=== PATIENT | female | born 1995 | race Caucasian/White ===

== ENCOUNTER 2023-12-14 15:35 | Outpatient (REF) | payer BC, SELFPAY ==
--- NOTE | 2023-12-14 15:25 | PAPFT_PTH ---
PATIENT: Alma Weinberg LOC: [facility] U#:[id number] AGE/SX: 28/F ROOM: RE12/14/[address]: Anuradha Dumont NP : 1995 BED: DIS: 12/14/2023 SPEC #: [id number] RECD: 12/14/23 18:00 STATUS: ELIZABET GALINDO #: [id number] LYN: 12/14/23 15:[address]: Anuradha Dumont NP DEPT: [facility] Cytology RECD BY: Izabel Javier ENTERED: 12/14/23 18:00 SP TYPE: PAPFT OT DR: Unknown,Unknown Tissues: 1 - CX/ENDOCX FOR PAP SMEARS Procedures: PAP THIN PREP/[facility] Screening Comments: [id number]
== END 2023-12-14 15:36 | disposition home or self-care (01) ==
LOC: LBN 15:35
PROVIDERS: Visit Provider Nurse Practitioner Women's Health
DX: Z12.4 Encounter for screening for malignant neoplasm of cervix (principal)
CPT/HCPCS: 88142

== ENCOUNTER 2024-03-23 16:52 | Outpatient (REF) | payer BC, SELFPAY ==
[2024-03-23 20:25] LABS: ALT 20 U/L (14-59); AST 16 U/L (15-37); Albumin 4.4 g/dL (3.4-5.0); Alkaline Phosphatase 32 U/L (46-116); Anion Gap 9.4 mmol/L (3-11); BUN 10 mg/dL (7-18); Bilirubin, Total 0.37 mg/dL (0.2-1.0); CO2 27.6 mmol/L (21.0-32.0); CREATININE 0.8 mg/dL (0.55-1.02); Calcium 9.1 mg/dL (8.5-10.1); Calculated LDL 168 mg/dL (<100); Chloride 107 mmol/L (98-107); Cholesterol 253 mg/dL (<200); Estimated GFR 102.22 (mL/min/1.73m2); Glucose 102 mg/dL (74-106); HDL Cholesterol 70 mg/dL (40-60); Potassium 3.8 mmol/L (3.5-5.1); Sodium 144 mmol/L (136-145); TSH (W/Ref FT4) 2.07 uIU/mL (0.36-3.74); Total Protein 7.5 g/dL (6.4-8.2); Triglyceride 76 mg/dL (<150)
== END 2024-03-23 16:53 | disposition home or self-care (01) ==
LOC: NCHCN 16:52
PROVIDERS: Visit Provider Student in an Organized Health Care Education/Training Program
DX: E03.9 Hypothyroidism, unspecified (principal); Z13.220 Encounter for screening for lipoid disorders; Z13.228 Encounter for screening for other metabolic disorders
CPT/HCPCS: 80053; 80061; 84443

== ENCOUNTER 2025-08-14 15:23 | Outpatient (REF) | payer BC, SELFPAY ==
[2025-08-14 21:25] LABS: TSH 0.81 uIU/mL (0.55-4.78); Vitamin D 25 Total 55 ng/mL (30-100)
== END 2025-08-14 15:24 | disposition home or self-care (01) ==
LOC: NCHCN 15:23
PROVIDERS: Visit Provider Student in an Organized Health Care Education/Training Program
DX: E03.9 Hypothyroidism, unspecified (principal); E55.9 Vitamin D deficiency, unspecified
CPT/HCPCS: 82306; 84439; 84443